=== PATIENT | male | born 1990 | race Two or more races ===

== ENCOUNTER 2018-01-19 12:23 | Emergency (ER) | payer BC ==
[~2018-01-19] VITALS: Ht 167.6 cm; Wt 63.5 kg
[2018-01-19] MEDS ORDERED: Lidocaine 1% MPF 10mg/ml 5ml INJ ONE (12:45)
[2018-01-19] MEDS ORDERED: IBUPROFEN600 MG ORAL (13:48)
[2018-01-19 14:04] VITALS: BP 118/79
[2018-01-19 14:05] VITALS: BP 118/79
--- NOTE | 2018-01-19 14:16 | Emergency Room Report ---
History of Present Illness General Chief Complaint: Laceration Source: Patient Present Illness HPI The patient is a 27-year-old male presenting for left index finger laceration. He states that this occurred at home today. He states that he was cutting a metal wire and his instrument slipped and cut the finger. He noticed immediate pain and bleeding. Pain is now a 5/10 throbbing. Does not radiate. Worse with movement. He denies any numbness or tingling. He denies other symptoms. Last tetanus shot was within 10 years Allergies: Coded Allergies: No Known Allergies (Unverified , 01/19/18) Patient History Past Medical History: see triage record Pertinent Family History: none Reviewed Nursing Documentation: PMH: Agreed, PSxH: Agreed Nursing Documentation-PMH Past Medical History: No Stated History Review of Systems All Other Systems: negative except mentioned in HPI Physical Exam Vital Signs Date Time Temp Pulse Resp B/P (MAP) Pulse Ox O2 Delivery O2 Flow Rate FiO2 01/19/18 12:32 97.9 72 19 121/78 99 Room Air 97.9 Sp02 EP Interpretation: reviewed, normal General Appearance: no apparent distress, alert, GCS 15, non-toxic Head: normocephalic, atraumatic Eyes: bilateral eye normal inspection, bilateral eye PERRL ENT: hearing grossly normal, normal pharynx, no angioedema, normal voice Musculoskeletal: normal range of motion, tender - TTP over the L finger laceration lateral to PIPJ Neurologic: alert, oriented x3, responsive, motor strength/tone normal, sensory intact, speech normal Psychiatric: judgement/insight normal, memory normal, mood/affect normal, no suicidal/homicidal ideation Skin: laceration - 3cm linear laceration to the L 2nd finger lateral to PIPJ Lymphatic: no adenopathy Procedures Splinting Splinting : Consent: Verbal Location: L index Pre-Made Type: metal Pre-Proc Neuro Vasc Exam: normal Post-Proc Neuro Vasc Exam: normal Patient Tolerated: Well Complications: None Laceration/Wound Repair Laceration/Wound Repair : Consent: Verbal Wound Location: upper extremity Wound's Depth, Shape: superficial, linear Wound Length (cm): 3 Wound Explored: clean Irrigated w/ Saline (ccs): 100 Betadine Prep?: Yes Anesthesia: 1% Lidocaine Volume Anesthetic (ccs): 5 Wound Debrided: minimal Wound Repaired With: sutures Suture Size/Type: 5:0 Number of Sutures: 4 Layer Closure?: No Sterile Dressing Applied?: Yes Splint Applied?: Yes Type of Splint Applied: metal finger Patient Tolerated: Well Complications: None Medical Decision Making PA Attestation Dr. Borja is my supervising physician. Patient management was discussed with my supervising physician Diagnostic Impression: Primary Impression: Finger laceration Qualified Codes: S61.211A - Laceration without foreign body of left index finger without damage to nail, initial encounter ER Course The patient is a 27-year-old male presenting for left index finger laceration Ddx considered include but not limited to fracture, tendon/ligament injury, avulsion, nerve damage PE: NAD 3cm linear laceration to the L 2nd finger lateral to PIPJ. Full AROM intact. SILT. The wound was irrigated with normal saline and cleaned with betadine. A 27g needle was used to administer 5mL of lidocaine w.o epi for digital block. 4 sutures were placed with 5-0 nylon. The wound was well approximated and the patient tolerated the procedure well. The wound was then cleaned. A metal finger splint was applied The patient will continue to keep the wound clean and dry and will followup with PMD. Suture instructions provided. ER precautions are given Last Vital Signs Date Time Temp Pulse Resp B/P (MAP) Pulse Ox O2 Delivery O2 Flow Rate FiO2 01/19/18 14:05 97.9 76 16 118/79 95 Room Air 97.9 Status: improved Disposition: HOME, SELF-CARE Condition: Improved Scripts Ibuprofen* (MOTRIN*) 600 Mg Tablet 600 MG ORAL Q8H Y for For Pain, #30 TAB 0 Refills Prov: ILDEFONSO BERNAL 01/19/18 Patient Instructions: Laceration Care, Adult Additional Instructions: I discussed my findings with the patient. All questions and concerns have been answered. Treatment and medication compliance have been addressed. I advised the patient that they need to follow up with PMD in 7 days for wound check and suture removal. If you are unable to see PMD, return to the ED in 7 days. Return to ED if pain remains or worsens, you notice discharge from the wound, the wound continues to bleed, the suture/s fall out, you notice a fever or chills, or for any reason. Patient is advised to keep the wound clean. Patient verbalized understanding of discharge instructions. ILDEFONSO BERNAL Jan 19, 2018 14:16
== END 2018-01-19 14:05 | disposition home or self-care (01) ==
LOC: EMR 12:36
DX: S61.211A Laceration without foreign body of left index finger without damage to nail, initial encounter (principal); W27.8XXA Contact with other nonpowered hand tool, initial encounter; Y92.9 Unspecified place or not applicable
CPT/HCPCS: 29130; 99284

== ENCOUNTER 2019-01-19 12:52 | Emergency (ER) | payer BC, OTHER ==
[~2019-01-19] VITALS: Ht 172.7 cm; Wt 65.8 kg
[~2019-01-19 12:52] MED LIST: IBUPROFEN600 MG ORAL
[2019-01-19] MEDS ORDERED: NKM (13:04)
[2019-01-19] MEDS ORDERED: Bicillin LA 2.4MMU/4ML SYR IM ONE (13:15)
[2019-01-19 13:20] VITALS: BP 115/86
--- NOTE | 2019-01-19 13:20 | NUR ---
ED Nurse Note: patient is here from Dwayne Scott MD office to get his Bicillin shot. AAO x 4, VSS at this time. per patient he had rash all over his body, now it is gone.
--- NOTE | 2019-01-19 13:31 | NUR ---
ED Nurse Note: Bicillin shot was given IM RUQ of the gluteus savi. patient tolerate procedure well.
--- NOTE | 2019-01-19 13:52 | Emergency Room Report ---
History of Present Illness General Chief Complaint: Male Urogenital Problems Source: Patient Present Illness HPI 28-year-old male presents to the emergency department for penicillin injection after tested positive for syphilis. He states that rash has resolved however he was being worked up for his rash and it came back as positive on blood tests. Patient denies history of immunocompromise he denies history of STI's, fevers, chills, muscle cramps or spasms. Patient denies weakness or paresthesias. Pt. denies swollen tender lymph nodes. Denies lesions/rashes elsewhere on the body. Denies new medications or body washes or creams. Denies swelling of the lips, tongue , throat or airway. Denies wheezing, or shortness of breath. Denies recent travel, recent illness or ill contacts. denies blisters, oral lesions, or sloughing of the skin. Denies pain. Allergies: Coded Allergies: No Known Allergies (Unverified , 01/19/19) Patient History Past Medical History: see triage record Past Surgical History: none Pertinent Family History: none Reviewed Nursing Documentation: PMH: Agreed; PSxH: Agreed Nursing Documentation-PMH Past Medical History: No Stated History Review of Systems All Other Systems: negative except mentioned in HPI Physical Exam Vital Signs Date Time Temp Pulse Resp B/P (MAP) Pulse Ox O2 Delivery O2 Flow Rate FiO2 01/19/19 13:01 98.2 87 15 113/86 95 01/19/19 13:20 Room Air Sp02 EP Interpretation: reviewed, normal General Appearance: well appearing, no apparent distress, alert, GCS 15, non- toxic Head: normocephalic, atraumatic Eyes: bilateral eye normal inspection, bilateral eye PERRL ENT: hearing grossly normal, normal pharynx, normal voice Neck: full range of motion Respiratory: lungs clear, normal breath sounds, no wheezing, speaking full sentences Cardiovascular #1: regular rate, rhythm, no edema Musculoskeletal: back normal, gait/station normal, normal range of motion, non- tender Neurologic: alert, oriented x3, responsive, motor strength/tone normal, sensory intact, speech normal, grossly normal Psychiatric: judgement/insight normal Skin: normal color, no rash, warm/dry, well hydrated Lymphatic: no adenopathy Medical Decision Making PA Attestation Dr. Bennett is my supervising Physician whom patient management has been discussed with. Diagnostic Impression: Primary Impression: Positive serology for syphilis ER Course 28-year-old male presents to the emergency department for penicillin injection after tested positive for syphilis. He states that rash has resolved however he was being worked up for his rash and it came back as positive on blood tests. Patient denies history of immunocompromise he denies history of STI's, fevers, chills, muscle cramps or spasms. Patient denies weakness or paresthesias. Pt. denies swollen tender lymph nodes. Denies lesions/rashes elsewhere on the body. Denies new medications or body washes or creams. Denies swelling of the lips, tongue , throat or airway. Denies wheezing, or shortness of breath. Denies recent travel, recent illness or ill contacts. denies blisters, oral lesions, or sloughing of the skin. Denies pain. Ddx considered but are not limited to cellulitis, scabies, shingles, varicella, dermatitis, urticaria, eczema, tinea, viral exanthem, SJS Vital signs: are WNL, pt. is afebrile H&PE are most consistent with resolved syphilis rash but positive testing requiring abx Tx. ORDERS: none required at this time, the diagnosis is clinical ED INTERVENTIONS: -2.4 MIU PCN-G IM DISCHARGE: At this time pt. is stable for d/c to home. Will provide printed patient care instructions, and any necessary prescriptions. Care plan and follow up instructions have been discussed with the patient prior to discharge. Last Vital Signs Date Time Temp Pulse Resp B/P (MAP) Pulse Ox O2 Delivery O2 Flow Rate FiO2 01/19/19 13:20 98.0 78 16 115/86 96 Room Air Disposition: HOME, SELF-CARE Condition: Stable Patient Instructions: Syphilis Additional Instructions: Take medications as directed. Follow up with a Primary Care Provider in 3-5 days, even if your symptoms have resolved. --Please review list of primary care clinics, if you do not already have a primary care provider Return sooner to ED if new symptoms occur, or current symptoms become worse. - Please note that this Emergency Department Report was dictated using [email or web address] supervisor technology software, occasionally this can lead to erroneous entry secondary to interpretation by the dictation equipment. Carol Ann Nava Jan 19, 2019 13:52
[2019-01-19 13:58] VITALS: BP 130/70
--- NOTE | 2019-01-19 14:00 | NUR ---
ER DISCHARGE NOTE: Patient is cleared to be discharged per ERMD, pt is aox4, on room air, with stable vital signs. pt was given dc and prescription instructions, pt was able to verbalize understanding, pt id band removed. pt is able to ambulate with steady gait. pt took all belongings.
== END 2019-01-19 14:39 | disposition home or self-care (01) ==
LOC: EMR 13:55
DX: R21 Rash and other nonspecific skin eruption (principal); R79.89 Other specified abnormal findings of blood chemistry
CPT/HCPCS: 96372; 99283